=== PATIENT | female | born 2000 | race Caucasian/White ===

== ENCOUNTER 2022-05-19 14:40 | Emergency (ER) | payer BC ==
[2022-05-19] MEDS ORDERED: IBUPROFEN 200 MG TAB PO ONE (15:15)
--- NOTE | 2022-05-19 16:46 | EDPHYS ---
Physician Documentation [facility] Name: Angeles Ng Age: 21 yrs Sex: Female : 2000 Arrival Date: 05/19/2022 Time: 14:48 Bed 25 Private MD: ED Physician Pernell Ellis HPI: 05/19 15:10 This 21 yrs old Female presents to ER via Ambulatory with complaints of Fever, cp Headache, Cough. 15:10 The patient reports fever, with an emergency department temperature of 103 degrees cp Fahrenheit. Onset: The symptoms/episode began/occurred this morning. Associated signs and symptoms: Pertinent positives: cough, sore throat, body aches. Historical: - Allergies: 15:04 No Known Allergies; ss - Home Meds: 15:04 None [Active]; ss - PMHx: 15:04 None; ss - PSHx: 15:04 None; ss - Immunization history:: Adult Immunizations unknown. - Social history:: Smoking status: Patient denies any tobacco usage or history of. ROS: 15:15 Eyes: Negative for injury, pain, redness, and discharge. cp 15:15 Constitutional: Positive for body aches, fever, Negative for poor PO intake. 15:15 ENT: Positive for sore throat, Negative for drainage from ear(s), ear pain, difficulty swallowing, difficulty handling secretions. 15:15 Respiratory: Positive for cough, with no reported sputum. 15:15 Cardiovascular: Negative for chest pain, edema, palpitations. cp 15:15 Abdomen/GI: Negative for abdominal pain, nausea, vomiting, and diarrhea, constipation. 15:15 : Negative for urinary symptoms. 15:15 Neuro: Negative for altered mental status, weakness. 15:15 All other systems are negative. Exam: 15:20 Head/Face: Normocephalic, atraumatic. cp 15:20 Constitutional: The patient appears in no acute distress, alert, awake, comfortable, non-toxic, well developed, well nourished. 15:20 Eyes: Periorbital structures: appear normal, Conjunctiva: normal, no exudate, no injection, Sclera: no appreciated abnormality, Lids and lashes: appear normal, bilaterally. 15:20 ENT: External ear(s): are unremarkable, Ear canal(s): are normal, clear, TM's: dullness, bilaterally, Nose: is normal, Mouth: Lips: moist, Oral mucosa: moist, Posterior pharynx: Airway: no evidence of obstruction, patent, Tonsils: no enlargement, no exudate, erythema, that is moderate, exudate, is not appreciated. 15:20 Neck: ROM/movement: is normal, is supple, no meningismus, no nuchal rigidity, Lymph nodes: no appreciated lymphadenopathy. 15:20 Chest/axilla: Inspection: normal. 15:20 Cardiovascular: Rate: tachycardic, Rhythm: regular. cp 15:20 Respiratory: the patient does not display signs of respiratory distress, Respirations: normal, no use of accessory muscles, no retractions, labored breathing, is not present, Breath sounds: are clear throughout, no decreased breath sounds, no stridor, no wheezing. 15:20 Abdomen/GI: Exam negative for discomfort, distension, guarding, Inspection: abdomen appears normal. 15:20 Neuro: Orientation: to person, place \\T\\ time. Mentation: is normal, Motor: moves all fours, strength is normal, Sensation: is normal, Gait: is steady. Vital Signs: 15:02 BP 124 / 61; Pulse 104; Resp 16; Temp 103(O); Pulse Ox 99% on R/A; Weight 72.57 kg; ss Height 5 ft. 9 in. (175.26 cm); Pain 7/10; 16:20 BP 101 / 51; Pulse 88; Resp 15; Temp 100.1(O); Pulse Ox 100% ; jl7 15:02 Body Mass Index 23.63 (72.57 kg, 175.26 cm) ss MDM: 15:41 Patient medically screened. cp 16:00 Differential diagnosis: viral Infection, bacterial infection, URI, bronchitis, cp pneumonia UTI, gastroenteritis, meningitis. 16:44 Data reviewed: vital signs, nurses notes, lab test result(s), and as a result, I will cp discharge patient. 16:45 Counseling: I had a detailed discussion with the patient and/or guardian regarding: the cp historical points, exam findings, and any diagnostic results supporting the discharge/admit diagnosis, lab results, to return to the emergency department if symptoms worsen or persist or if there are any questions or concerns that arise at home. 16:45 ED course: VSS. Patient appears non-toxic and no signs of respiratory distress. Will cp discharge to home for continued monitoring. 05/19 15:09 Order name: COVID-19 SARS RT PCR (Document "Date of Onset" if Symptomatic); Complete ss Time: 16:32 05/19 16:32 Interpretation: Reviewed. cp 05/19 15:09 Order name: Flu; Complete Time: 16:32 ss 05/19 15:34 Order name: Strep; Complete Time: 16:47 cp 05/19 16:54 Order name: Throat Culture EDMS Administered Medications: 15:09 Drug: Ibuprofen 600 mg Route: PO; ss 16:00 Follow up: Response: No adverse reaction; Temperature is decreased jl7 17:00 Drug: Tylenol 1000 mg Route: PO; jl7 17:10 Follow up: Response: Medication administered at discharge. jl7 Disposition: 18:04 Co-signature as Attending Physician, Pernell Ellis MD. rn Disposition Summary: 05/19/22 16:45 Discharge Ordered Location: Home cp Problem: new cp Symptoms: have improved cp Condition: Stable cp Diagnosis - SARS-associated coronavirus as the cause of diseases classified elsewhere cp Followup: cp - With: Private Physician - When: 2 - 3 days - Reason: Worsening of condition Discharge Instructions: - Discharge Summary Sheet cp - COVID-19 cp - Things to Know about the COVID-19 Pandemic - [facility] cp - 10 Things You Can Do to Manage Your COVID-19 Symptoms at Home - [facility] cp - COVID-19: Quarantine vs. Isolation - [facility] cp - Prevent the Spread of COVID-19 if You Are Sick - [facility] cp Forms: - Medication Reconciliation Form cp - Thank You Letter cp - Antibiotic Education cp - Prescription Opioid Use cp - Work release form jl7 Prescriptions: - Ibuprofen 800 mg Oral Tablet - take 1 tablet by ORAL route every 8 hours As needed take with food; 30 tablet; cp Refills: 0, Product Selection Permitted Signatures: Dispatcher [employer] EDMS Pernell Ellis MD MD rn Smirch, Shelby, RN RN ss Page, Corey, PA PA cp Darwin Ibrahim RN RN jl7 Corrections: (The following items were deleted from the chart) 16:43 05/18 15:15 Constitutional: Positive for body aches, fever, Negative for poor PO cp intake, cp 05/19 16:05/18 15:15 Eyes: Negative for injury, pain, redness, and discharge, cp cp 05/19 16:05/18 15:15 ENT: Positive for sore throat, Negative for drainage from ear(s), ear pain, cp difficulty swallowing, difficulty handling secretions, cp 05/19 16:05/18 15:15 Respiratory: Positive for cough, with no reported sputum, cp cp
--- NOTE | 2022-05-19 16:46 | ER ---
Nurse's Notes [facility] Name: Angeles Ng Age: 21 yrs Sex: Female : 2000 Arrival Date: 05/19/2022 Time: 14:48 Bed 25 Private MD: Diagnosis: SARS-associated coronavirus as the cause of diseases classified elsewhere Presentation: 05/19 15:02 Chief complaint: Patient states: headache, fever and cough that began last night. ss Coronavirus screen: Client denies travel out of the [place] in the last 14 days. Ebola Screen: Patient denies exposure to infectious person. Patient denies travel to an Ebola-affected area in the 21 days before illness onset. Initial Sepsis Screen: Does the patient meet any 2 criteria? Temp <36.0*C (96.8*F)) or > 38.3*C (100.9*F). No. Patient's initial sepsis screen is negative. Does the patient have a suspected source of infection? No. Patient's initial sepsis screen is negative. Risk Assessment: Do you want to hurt yourself or someone else? Patient reports no desire to harm self or others. Onset of symptoms was May 18, 2022. 15:02 Method Of Arrival: Ambulatory ss 15:02 Acuity: RADHA 4 Historical: - Allergies: 15:04 No Known Allergies; ss - Home Meds: 15:04 None [Active]; ss - PMHx: 15:04 None; ss - PSHx: 15:04 None; ss - Immunization history:: Adult Immunizations unknown. - Social history:: Smoking status: Patient denies any tobacco usage or history of. Screenin:00 Abuse screen: Denies threats or abuse. Denies injuries from another. Nutritional jl7 screening: No deficits noted. Tuberculosis screening: No symptoms or risk factors identified. Fall Risk None identified. Assessment: 16:00 General: Appears in no apparent distress. uncomfortable, Behavior is calm, cooperative, jl7 appropriate for age. Pain: Complains of pain in FARRELL Pain currently is 7 out of 10 on a pain scale. Is continuous. Neuro: Level of Consciousness is awake, alert, obeys commands, Oriented to person, place, time, situation. Cardiovascular: Patient's skin is warm and dry. Respiratory: Airway is patent Respiratory effort is even, unlabored, Respiratory pattern is regular, symmetrical. EENT: Throat is clear. Derm: Skin is pink, warm \T\ dry. 17:00 Reassessment: Patient appears in no apparent distress at this time. Patient and/or jl7 family updated on plan of care and expected duration. Pain level reassessed. Patient is alert, oriented x 3, equal unlabored respirations, skin warm/dry/pink. Patient states symptoms have improved. Vital Signs: 15:02 BP 124 / 61; Pulse 104; Resp 16; Temp 103(O); Pulse Ox 99% on R/A; Weight 72.57 kg; ss Height 5 ft. 9 in. (175.26 cm); Pain 7/10; 16:20 BP 101 / 51; Pulse 88; Resp 15; Temp 100.1(O); Pulse Ox 100% ; jl7 15:02 Body Mass Index 23.63 (72.57 kg, 175.26 cm) ED Course: 14:48 Patient arrived in ED. mr 14:56 Kyle Costa PA is PHCP. cp 14:56 Pernell Ellis MD is Attending Physician. cp 15:04 Triage completed. ss 15:04 Arm band placed on right wrist. ss 15:50 COVID swab sent to lab. Flu and/or RSV swab sent to lab. jl7 16:00 Patient has correct armband on for positive identification. Pulse ox on. NIBP on. jl7 16:04 Darwin Ibrahim, DWAYNE is Primary Nurse. jl7 16:13 Strep swab sent to lab. jl7 17:13 No provider procedures requiring assistance completed. Patient did not have IV access jl7 during this emergency room visit. Administered Medications: 15:09 Drug: Ibuprofen 600 mg Route: PO; ss 16:00 Follow up: Response: No adverse reaction; Temperature is decreased jl7 17:00 Drug: Tylenol 1000 mg Route: PO; jl7 17:10 Follow up: Response: Medication administered at discharge. jl7 Medication: 17:00 VIS not applicable for this client. jl7 Outcome: 16:45 Discharge ordered by . cp 17:13 Discharged to home ambulatory. jl7 17:13 Condition: stable 17:13 Discharge instructions given to patient, family, Instructed on discharge instructions, follow up and referral plans. medication usage, Demonstrated understanding of instructions, follow-up care, medications, Prescriptions given X 1. 17:13 Patient left the ED. jl7 Signatures: Genny Sanchez Shelby RN RN ss Kyle Costa PA PA cp Leal, Jahala, RN RN perri7
[2022-05-19] MEDS ORDERED: ACETAMINOPHEN 500 MG TAB ONE (17:00)
[2022-05-19 17:31] VITALS: BP 101/51; TEMP 100.1; O2SAT 100
== END 2022-05-19 17:13 | disposition home or self-care (01) ==
LOC: ER 14:40
DX: U07.1 COVID-19 (principal)
CPT/HCPCS: 87070; 87081; 87804 ×2; U0003